=== PATIENT | female | born 1955 | race Caucasian/White ===

== ENCOUNTER 2018-04-16 17:58 | Emergency (ER) | payer MEDICARE, OTHER ==
[~2018-04-16] VITALS: Ht 167.6 cm; Wt 64.7 kg
[~2018-04-16 17:58] MED LIST: ASPI-612 PO; CALC-988 PO; COR3.125T PO; ESOM40CA PO; FENO145T38 PO; FURO40TA4 PO; HYT1T PO; INSU100C10 SQ; LEVO50TA67 PO; MECL12.5 PO; NORCO10T PO; PARO20TA53 PO; POLY17PO10 PO; ROSU20TA PO; SUBC1EAC17 MC; VITA200T6 PO; ZET10T PO
[2018-04-16] MEDS ORDERED: levoFLOXACIN-Levaquin 500mg/D5 100 ML IV ONE (21:15)
[2018-04-16] MEDS ORDERED: levoFLOXACIN-Levaquin 250mg/D5 50 ML IV STA (21:30)
[2018-04-16 22:09] LABS: BASOPHILS # (AUTO) 0.1 X10'3 (0-0.2); BASOPHILS % (AUTO) 0.6 % (0-1); EOSINOPHILS # (AUTO) 0.2 X10'3 (0-0.9); EOSINOPHILS % (AUTO) 1.9 % (0-6); HEMATOCRIT 29.8 % (35.0-45.0); HEMOGLOBIN 10.2 g/dl (12.0-16.0); LYMPHOCYTES # (AUTO) 1.3 X10'3 (1.1-4.8); LYMPHOCYTES % (AUTO) 15.3 % (21-51); MEAN CORPUSCULAR HEMOGLOBIN 29.5 PG (27.0-31.0); MEAN CORPUSCULAR HGB CONC 34.3 % (33.0-36.5); MEAN PLATELET VOLUME 10.9 FL (7.4-10.4); MONOCYTES # (AUTO) 0.7 X10'3 (0-0.9); MONOCYTES % (AUTO) 8.2 % (2-12); NEUTROPHILS # (AUTO) 6.1 X10'3 (1.8-7.7); PLATELET COUNT 208 X10'3 (140-440); RED BLOOD COUNT 3.46 X10'6 (4.20-5.60); RED CELL DISTRIBUTION WIDTH 13.1 % (11.5-14.5); WHITE BLOOD COUNT 8.3 X10'3 (4.5-11.0)
[2018-04-16 22:23] LABS: ALANINE AMINOTRANSFERASE 23 U/L (12-78); ALBUMIN 3.4 G/DL (3.4-5.0); ALBUMIN/GLOBULIN RATIO 0.9 (1.1-1.5); ALKALINE PHOSPHATASE 56 IU/L (46-116); ANION GAP 10 (8-16); ASPARTATE AMINO TRANSFERASE 24 U/L (10-37); BILIRUBIN,TOTAL 0.3 MG/DL (0.1-1.0); BLOOD UREA NITROGEN 58 MG/DL (7-18); BUN/CREATININE RATIO 13.8 (6.6-38.0); CHLORIDE 97 MMOL/L (99-107); GLUCOSE 149 MG/DL (70-104); POTASSIUM 4.6 MMOL/L (3.5-5.1); SODIUM 138 MMOL/L (135-145); TOTAL CARBON DIOXIDE 30.9 MMOL/L (24-32); TOTAL PROTEIN 7.1 G/DL (6.4-8.2); eGFR 11 ML/MIN
[2018-04-16 22:47] VITALS: BP 175/69
[2018-04-16] MEDS ORDERED: sulfamethoxazole/trimethoprim DS (800/160mg) tablet PO ONE (23:10)
[2018-04-16] MEDS ORDERED: SULF1TAB49 PO (23:12)
== END 2018-04-16 23:31 | disposition home or self-care (01) ==
LOC: ER 17:59
DX: L03.115 Cellulitis of right lower limb (principal); I25.10 Atherosclerotic heart disease of native coronary artery without angina pectoris; E10.22 Type 1 diabetes mellitus with diabetic chronic kidney disease; N18.9 Chronic kidney disease, unspecified; Z98.890 Other specified postprocedural states; Z88.8 Allergy status to other drugs, medicaments and biological substances; Z79.82 Long term (current) use of aspirin; Z79.899 Other long term (current) drug therapy
CPT/HCPCS: 36415; 80053; 85025; 96365; 99284; A6449; J1956

== ENCOUNTER 2021-03-05 09:03 | Day surgery (SDC) | payer OTHER ==
[2021-02-28 12:26] LABS: BASOPHILS # (AUTO) 0.1 X10'3 (0-0.2); BASOPHILS % (AUTO) 1.7 % (0-1); EOSINOPHILS # (AUTO) 0.2 X10'3 (0-0.9); EOSINOPHILS % (AUTO) 3.1 % (0-6); LYMPHOCYTES # (AUTO) 2.1 X10'3 (1.1-4.8); LYMPHOCYTES % (AUTO) 32.1 % (21-51); MEAN CORPUSCULAR HEMOGLOBIN 29.1 PG (27.0-31.0); MEAN CORPUSCULAR HGB CONC 33.3 g/dL (33.0-36.5); MEAN CORPUSCULAR VOLUME 87.4 FL (78-98); MEAN PLATELET VOLUME 11.2 FL (7.4-10.4); MONOCYTES # (AUTO) 0.6 X10'3 (0-0.9); NEUTROPHILS # (AUTO) 3.5 X10'3 (1.8-7.7); NEUTROPHILS % (AUTO) 54.1 % (42-75); PRE OP HEMATOCRIT 32.2 % (35.0-45.0); PRE OP PLATELET COUNT 170 X10'3 (140-440); RED BLOOD COUNT 3.69 X10'6 (4.20-5.60); RED CELL DISTRIBUTION WIDTH 12.9 % (11.5-14.5)
[2021-02-28 12:28] LABS: PRE OP HEMOGLOBIN 10.7 g/dL (12.0-16.0)
[2021-02-28 12:38] LABS: ALBUMIN 3.8 G/DL (3.4-5.0); ALKALINE PHOSPHATASE 33 IU/L (46-116); BLOOD UREA NITROGEN 62 MG/DL (7-18); BUN/CREATININE RATIO 13.4 (6.6-38.0); CALCIUM 8.6 MG/DL (8.5-10.1); CHLORIDE 99 MMOL/L (99-107); CREATININE 4.61 MG/DL (0.40-0.90); PRE OP ALT 26 U/L (30-65); PRE OP ANION GAP 10 (8-16); PRE OP AST 27 U/L (10-37); PRE OP BILIRUB, TOTAL 0.3 MG/DL (0.0-1.0); PRE OP GLUCOSE 95 MG/DL (70-104); PRE OP SODIUM 140 MMOL/L (135-145); TOTAL CARBON DIOXIDE 30.7 MMOL/L (24-32); TOTAL PROTEIN 7.6 G/DL (6.4-8.2); eGFR 10 ML/MIN
[2021-02-28 13:54] LABS: LARGE PLATELETS FEW; PLATELET ESTIMATE NORMAL
[2021-02-28 13:55] LABS: HYPOCHROMASIA 1+; POLYCHROMASIA FEW
[2021-02-28 14:04] LABS: CLARITY,URINE CLEAR (Clear); COLOR,URINE STRAW (Yellow); GLUCOSE, URINE 100 mg/dl (Neg); KETONES,URINE NEGATIVE (Neg); LEUKOCYTE ESTERASE ,URINE NEGATIVE (Neg); NITRITES, URINE NEGATIVE (Neg); OCCULT BLOOD,URINE TRACE-INTACT (Neg); PH,URINE 6.5 (4.8-8.0); PROTEIN,URINE TRACE mg/dl (Neg); UA COLLECTION TYPE CLN CATCH MIDSTREAM; UROBILINOGEN,URINE 0.2 E.U/dL (0.2-1.0)
[2021-02-28 14:09] LABS: BACTERIA,URINE FEW /HPF (Neg); MUCUS STRANDS NONE SEEN /LPF (Neg); RBC,URINE 0-2 /HPF (0-2); SQUAMOUS EPITHELIAL CELL,UR FEW /LPF (FEW); WBC,URINE 0-4 /HPF (0-4)
[~2021-03-05] VITALS: Ht 160 cm; Wt 63.4 kg
[2021-03-05] VITALS (9 sets, daily range): BP systolic 119–127; BP diastolic 54–67
[~2021-03-05 09:03] MED LIST changes: -ASPI-612 PO; +ASPI81TA52 PO; -CALC-988 PO; +CARV6.2555 PO; -COR3.125T PO; +DOCUMENT DATE & TIME OF BETA-BLOCKER PO ONE; -ESOM40CA PO; +FENO145T25 PO; -FENO145T38 PO; +HYDR-3972; -HYT1T PO; +INSULIN PUMP; -LEVO50TA67 PO; +LEVO50TA8 PO; -MECL12.5 PO; -NORCO10T PO; +OMEP-50 PO; -PARO20TA53 PO; +PARO20TA6 PO; +PHO667C PO; +POLY119P2 PO; -POLY17PO10 PO; -ROSU20TA PO; +ROSU40TA22 PO; -SUBC1EAC17 MC; +TERA2CAP4 PO; +VIT C; +VIT D3; +VIT E; -VITA200T6 PO; -ZET10T PO; +[UNRECOGNIZED DRUG - OTHER]; +cefazolin/dext.iso 2gm/100ml IV ONE; +famotidine 20mg tablet PO ONE; +normal saline 1000ml 1,000 ML IV SCH
[2021-03-05] MEDS ORDERED: MIDAZolam 1mg/ml 10ml vial ONE (09:48)
[2021-03-05] MEDS ORDERED: fentaNYL/PF 50MCG/1 ML 2ML syringe ONE ×2 (09:48→11:24)
[2021-03-05] MEDS ORDERED: ROPIVAcaine 0.5% (5mg/ml) 30ml vial ONE (09:50)
[2021-03-05] MEDS ORDERED: BUPIVAcaine/PF 2.5mg/ml (0.25%) 10ml vial ONE (09:51)
[2021-03-05] MEDS ORDERED: heparin 10,000 units/1 ML INJ ONE ×2 (09:51→10:07)
[2021-03-05] MEDS ORDERED: LIDOcaine 1% W/epiNEPHrine 1:100,000 20ml vial ONE (09:51)
[2021-03-05] MEDS ORDERED: fentaNYL/PF 50MCG/1 ML 2ML syringe IV PRN ×2 (09:55)
[2021-03-05] MEDS ORDERED: hydrALAZINE 20mg/ml inj. IV PRN (09:55)
[2021-03-05] MEDS ORDERED: labetalol 20mg/4ml (5mg/ml) syringe IV PRN (09:55)
[2021-03-05] MEDS ORDERED: ringers solution, lacted 1,000 ML IV SCH (09:55)
[2021-03-05] MEDS ORDERED: morphine 4 MG/ML inj SYRINge IV PRN (09:55)
[2021-03-05] MEDS ORDERED: ondansetron/PF 4mg/2ml inj IV PRN (09:55)
[2021-03-05] MEDS ORDERED: morphine 2 MG/ML inj. syringe IV PRN (09:55)
[2021-03-05 11:44] LABS: CLARITY,URINE CLEAR (Clear); COLOR,URINE STRAW (Yellow); GLUCOSE, URINE 250 mg/dl (Neg); KETONES,URINE NEGATIVE (Neg); LEUKOCYTE ESTERASE ,URINE NEGATIVE (Neg); NITRITES, URINE NEGATIVE (Neg); OCCULT BLOOD,URINE NEGATIVE (Neg); PROTEIN,URINE 30 mg/dl (Neg); UROBILINOGEN,URINE 0.2 E.U/dL (0.2-1.0)
[2021-03-05 11:47] LABS: UA COLLECTION TYPE NON-SPECIFIED
[2021-03-05 11:52] LABS: SQUAMOUS EPITHELIAL CELL,UR FEW /LPF (FEW)
[2021-03-05 11:53] LABS: BACTERIA,URINE NONE SEEN /HPF (Neg)
[2021-03-05 11:54] LABS: RBC,URINE 0-2 /HPF (0-2)
[2021-03-05 12:01] LABS: WBC,URINE 0-4 /HPF (0-4)
[2021-03-05] MEDS ORDERED: sevoflurane 250ml liquid IH ONE (12:20)
--- NOTE | 2021-03-05 13:20 | NUR ---
ADMITTED TO PACU FROM OR ACCOMPANIED BY ANESTHESIA. INTIAL PHYSICAL ASSESSMENT DONE AND RECORDED. REPORT RECEIVED FROM ANESTHESIA.
--- NOTE | 2021-03-05 14:15 | NUR ---
DISCHARGE CRITERIA MET, DISCHARGE INSTRUCTIONS GIVEN, DEMONSTRATES VERBAL UNDERSTANDING. DISCHARGED HOME IN GOOD CONDITION.
== END 2021-03-05 14:15 | disposition home or self-care (01) ==
LOC: PAS 09:03
PROVIDERS: ATTEND Surgery
DX: E11.22 Type 2 diabetes mellitus with diabetic chronic kidney disease (principal); I13.2 Hypertensive heart and chronic kidney disease with heart failure and with stage 5 chronic kidney disease, or end stage renal disease; I50.42 Chronic combined systolic (congestive) and diastolic (congestive) heart failure; N18.6 End stage renal disease; D63.8 Anemia in other chronic diseases classified elsewhere; E11.41 Type 2 diabetes mellitus with diabetic mononeuropathy; E21.3 Hyperparathyroidism, unspecified; E55.9 Vitamin D deficiency, unspecified; E11.21 Type 2 diabetes mellitus with diabetic nephropathy; F41.9 Anxiety disorder, unspecified; M19.90 Unspecified osteoarthritis, unspecified site; E03.9 Hypothyroidism, unspecified; Z98.41 Cataract extraction status, right eye; Z98.42 Cataract extraction status, left eye; Z98.890 Other specified postprocedural states; G89.18 Other acute postprocedural pain; Z79.4 Long term (current) use of insulin; Z96.41 Presence of insulin pump (external) (internal); Z79.899 Other long term (current) drug therapy; Z88.8 Allergy status to other drugs, medicaments and biological substances; Z20.822 Contact with and (suspected) exposure to COVID-19
CPT/HCPCS: 36415; 36821; 64415; 76942; 80053; 81001; 82948; 85025; 87635; C9803; J1644; J2250; J3010; J3490; J7030; J7040; J7120; Z7506; Z7508; Z7512; 85008; A4215; A4618; A6449; A7000; J2795

== ENCOUNTER 2022-01-06 08:43 | Emergency (ER) | payer OTHER ==
[~2022-01-06] VITALS: Ht 162.6 cm; Wt 65.0 kg
[~2022-01-06 08:43] MED LIST changes: -DOCUMENT DATE & TIME OF BETA-BLOCKER PO ONE; -OMEP-50 PO; +OMEP20CA16 PO; -cefazolin/dext.iso 2gm/100ml IV ONE; -famotidine 20mg tablet PO ONE; -normal saline 1000ml 1,000 ML IV SCH
--- NOTE | 2022-01-06 09:53 | NUR ---
PT REPORTS SEVERE PAIN IN HER RIGHT SHOULDER. ED ERIC OLIVAS MADE AWARE AND VERBAL ORDER FOR NORCO 10/325MG X1 DOSE NOW RECEIVED. ORDER PLACED RECEIVED
[2022-01-06] MEDS ORDERED: HYDROcodone/acetaminophen 10/325mg tab PO ONE (09:55)
[2022-01-06] MEDS ORDERED: OXYC-481 PO (10:41)
[2022-01-06 10:53] VITALS: BP 110/36
== END 2022-01-06 10:54 | disposition home or self-care (01) ==
LOC: ER 08:43
DX: S42.254A Nondisplaced fracture of greater tuberosity of right humerus, initial encounter for closed fracture (principal); I25.10 Atherosclerotic heart disease of native coronary artery without angina pectoris; E11.22 Type 2 diabetes mellitus with diabetic chronic kidney disease; N18.9 Chronic kidney disease, unspecified; Z98.891 History of uterine scar from previous surgery; Z72.89 Other problems related to lifestyle; Z88.8 Allergy status to other drugs, medicaments and biological substances; Z79.899 Other long term (current) drug therapy; Z79.82 Long term (current) use of aspirin; W18.09XA Striking against other object with subsequent fall, initial encounter; Z91.81 History of falling; Y93.89 Activity, other specified; Y92.89 Other specified places as the place of occurrence of the external cause; Y99.8 Other external cause status
CPT/HCPCS: 73030; 99284; A4565

== ENCOUNTER 2022-01-19 13:42 | Emergency (ER) | payer OTHER ==
[~2022-01-19] VITALS: Ht 162.6 cm; Wt 65.0 kg
[2022-01-19 13:50] VITALS: BP 129/69
== END 2022-01-19 19:28 | disposition left against medical advice (07) ==
LOC: ER 13:42
DX: Z00.8 Encounter for other general examination (principal); Z53.21 Procedure and treatment not carried out due to patient leaving prior to being seen by health care provider